=== PATIENT | male | born 1980 | race African-American/Black ===

== ENCOUNTER 2016-09-01 12:30 | Emergency (ER) | payer OTHER ==
[~2016-09-01] VITALS: Ht 175.3 cm; Wt 103.1 kg
[2016-09-01] MEDS ORDERED: NALOXONE HCL 0.4 MG/1 ML VIAL/CARP ONE ×2 (12:32→12:46)
[2016-09-01 12:39] VITALS: Ht 175.3 cm; Wt 103.1 kg
[2016-09-01 12:44] VITALS: O2SAT 99
[2016-09-01] MEDS ORDERED: SRQ200 PO (13:07)
[2016-09-01] MEDS ORDERED: QUET1TAB32 PO ×2 (13:07)
--- NOTE | 2016-09-01 13:07 | EMERGENCY ROOM VISIT NOTE ---
History Report prepared by Jared: Lisette Holt Under the Supervision of: Dr. Carlos England D.O. First contact with patient: 12:34 Stated Complaint: UNRESPONSIVE History of Present Illness The patient is a 35 year old male who presents to the Emergency Room with complaints of an episode of unresponsiveness occurring MANAGER CARE. The history is obtained from the corrections officers present at bedside. The patient is currently incarcerated at a [facility] facility. [facility] has been in [facility] for a week and a half. He is currently on suicide watch. The patient was found unresponsive in his cell today with pinpoint pupils. His BSG was 80. He was given 0.4mg of Narcan en route without any change in his mental status. He currently takes Seroquel. The history is limited secondary to the patient's unresponsiveness. 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 Past Medical & Surgical Medical Problems: (1) Depression (2) Suicidal ideations Family History No pertinent history stated. Social History Smoking Status: Unknown if Ever Smoked Housing Status: other (incarcerated) Occupation Status: other (incarcerated) Current/Historical Medications Scheduled Quetiapine Fumarate (Seroquel), 50 MG PO DAILY@0700 Quetiapine Fumarate (Seroquel), 200 MG PO HS Quetiapine Fumarate (Seroquel), 50 MG PO DAILY@1100 Allergies Coded Allergies: No Known Allergies (Unverified , 09/01/16) Physical Exam Vital Signs Date Time Temp Pulse Resp B/P Pulse Ox O2 Delivery O2 Flow Rate FiO2 09/01/16 16:48 108 20 174/116 100 09/01/16 16:11 37.0 108 20 174/116 100 09/01/16 15:56 145 30 205/192 09/01/16 14:11 87 18 147/108 98 Room Air 09/01/16 13:19 97 09/01/16 12:44 99 Nasal Cannula 2.0 09/01/16 12:39 37.2 95 20 152/107 99 Room Air Physical Exam GENERAL: Patient is unresponsive to deep, painful stimuli. HEENT: No acute trauma, normocephalic atraumatic, mucous membranes moist, no nasal congestion, no scleral icterus. NECK: No stridor, no adenopathy, no meningismus, trachea is midline. LUNGS: No dyspnea. Clear to auscultation and equal bilaterally. No wheeze, no rhonchi. HEART: Regular rate and rhythm. No murmurs, rubs, gallops appreciated. ABDOMEN: Soft, nontender, bowel sounds positive, no masses appreciated, no peritonitis. BACK: No midline tenderness, no CVA tenderness EXTREMITIES: Normal motion all extremities, no cyanosis, no edema. NEUROLOGIC: Unresponsive initially, now alert and oriented after 1.2mg of Narcan. No acute motor or sensory deficits, no focal weakness, cranial nerves grossly intact. SKIN: No rash, no jaundice, no diaphoresis. Medical Decision & Procedures ER Provider Diagnostic Interpretation: Radiology results as stated below per my review and radiologist interpretation: KUB CLINICAL HISTORY: alc pain COMPARISON STUDY: No previous studies for comparison. FINDINGS: Increased fecal load throughout the colon. Mild fecal impaction. No obstructive characteristics. No abnormal calcifications. IMPRESSION: 1. Mild fecal impaction. 2. Mild/moderate fecal load throughout the colon Electronically signed by: Jerrod Paredes M.D. 09/01/2016 1:21 PM Dictated Date/Time: 09/01/2016 1:20 PM CHEST ONE VIEW PORTABLE CLINICAL HISTORY: Unresponsive patient COMPARISON STUDY: No previous studies for comparison. FINDINGS: The heart is borderline enlarged. There is no failure. There is no focal pulmonary consolidation. There are no pleural effusions. There is no pneumothorax.[ IMPRESSION: No active disease in the chest. Electronically signed by: Jay Radford M.D. 09/01/2016 1:20 PM Dictated Date/Time: 09/01/2016 1:20 PM Laboratory Results 09/01/16 13:28 Red Blood Count 5.23, Mean Corpuscular Volume 85.3, Mean Corpuscular Hemoglobin 28.7, Mean Corpuscular Hemoglobin Concent 33.6, Mean Platelet Volume 10.5 09/01/16 13:28 Test 09/01/16 13:00 09/01/16 13:28 Urine Opiates Screen NEG (NEG) Urine Methadone, Qualitative NEG (NEG) Urine Barbiturates NEG (NEG) Urine Phencyclidine (PCP) Level NEG (NEG) Ur Amphetamine/Methamphetamine NEG (NEG) MDMA (Ecstasy) Screen NEG (NEG) Urine Benzodiazepines Screen POS (NEG) Urine Cocaine Metabolite NEG (NEG) Urine Marijuana (THC) POS (NEG) White Blood Count 4.52 K/uL (4.8-10.8) Red Blood Count 5.23 M/uL (4.7-6.1) Hemoglobin 15.0 g/dL (14.0-18.0) Hematocrit 44.6 % (42-52) Mean Corpuscular Volume 85.3 fL (80-100) Mean Corpuscular Hemoglobin 28.7 pg (25-34) Mean Corpuscular Hemoglobin Concent 33.6 g/dl (32-36) Platelet Count 258 K/uL (130-400) Mean Platelet Volume 10.5 fL (7.4-10.4) RDW Standard Deviation 48.6 fL (36.4-46.3) RDW Coefficient of Variation 15.4 % (11.5-14.5) Neutrophils % (Manual) 33.9 % Lymphocytes % (Manual) 41.1 % Variant Lymphocytes % (manual) 15.2 % Monocytes % (Manual) 8.0 % Eosinophils % (Manual) 1.8 % Neutrophils # (Manual) 1.53 K/uL (1.4-6.5) Total Absolute Neutrophils 1.53 K/uL (1.4-6.5) Lymphocytes # (Manual) 1.86 K/uL (1.2-3.4) Absolute Variant Lymphocytes 0.69 K/uL Total Absolute Lymphocytes 2.54 K/uL (1.2-3.4) Monocytes # (Manual) 0.36 K/uL (0.11-0.59) Eosinophils # (Manual) 0.08 K/uL (0-0.5) Toxic Vacuolation 1+ Venous Blood pH 7.33 (7.36-7.41) Venous Blood Partial Pressure CO2 59 mmHg (38.0-50.0) Venous Blood Partial Pressure O2 33 mmHg Venous Blood HCO3 31 mmol/L Venous Blood Oxygen Saturation < 60.0 % Venous Blood Base Excess 2.9 mmol/L Anion Gap 8.0 mmol/L (3-11) Est Creatinine Clear Calc Drug Dose 120.9 ml/min Estimated GFR () 111.7 Estimated GFR (Non- 96.4 BUN/Creatinine Ratio 11.6 (10-20) Osmolality 296 mOsm/kg (280-300) Calcium Level 9.3 mg/dl (8.5-10.1) Phosphorus Level 3.6 mg/dl (2.5-4.9) Magnesium Level 2.1 mg/dl (1.8-2.4) Total Bilirubin 0.6 mg/dl (0.2-1) Aspartate Amino Transf (AST/SGOT) 15 U/L (15-37) Alanine Aminotransferase (ALT/SGPT) 26 U/L (12-78) Alkaline Phosphatase 97 U/L (45-117) Total Protein 8.7 gm/dl (6.4-8.2) Albumin 4.4 gm/dl (3.4-5.0) Globulin 4.3 gm/dl (2.5-4.0) Albumin/Globulin Ratio 1.0 (0.9-2) Salicylates Level < 1.7 mg/dl (2.8-20) Acetaminophen Level < 2 ug/ml (10-30) Ethyl Alcohol mg/dL < 3.0 mg/dl (0-3) Laboratory results as reviewed by me. Medications Administered Medications (Trade) Dose Ordered Sig/Víctor Route Start Time Stop Time Status Last Admin Dose Admin Naloxone HCl (Narcan Inj) 1.2 mg STK-MED ONCE .ROUTE 09/01/16 12:32 09/01/16 12:36 DC 09/01/16 12:35 0.4 MG Haloperidol Lactate (Haldol Inj) 5 mg STK-MED ONCE .ROUTE 09/01/16 15:48 09/01/16 15:51 DC 09/01/16 15:56 5 MG Haloperidol Lactate (Haldol Inj) 5 mg STK-MED ONCE .ROUTE 09/01/16 15:57 09/01/16 16:00 DC 09/01/16 16:03 5 MG ECG Indication: altered mental status Rate (beats per minute): 90 Rhythm: normal sinus Findings: nonspecific-ST abn (consistent with early repolarization), other ( Normal axis, normal intervals) Comparison ECG Date: no prior available ED Course 1234: The patient was evaluated in room B1. A complete history and physical exam was performed. 1232: 1.2mg of Narcan 1259: I reassessed the patient at this time. His mental status is improving. 1306: I reassessed the patient. He is more awake and alert. He is sitting up in bed and talking. 1555: I reassessed the patient at this time. He was not verbally re-directable and screaming in the department. 1600: Haldol 10 mg IV 1630: I reevaluated the patient at this time. He is doing well. I discussed the results and treatment plan with the patient and the corrections officers. I answered all pertaining questions that they had. The patient will be discharged back to half-way in the custody of the corrections officers. Medical Decision Differential: Toxicological, Infectious, Stroke, SAH, Trauma, Electrolyte Abnormality, Hypoglycemia, Alcohol Intoxication, Drug Intoxication, Cardiac Abnormality, Sepsis, Meningitis/Encephalitis, Trauma, Excited Delirium, Serotonin Syndrome, Psychiatric, amongst other pathologies entertained. Patient is a 35-year-old male who is been on suicide watch in the half-way. He was found today unresponsive in the cell and brought to medical for further evaluation. He was given 0.4 mg Narcan prior to arrival by EMS. Initially the patient was unresponsive to deep painful stimuli however he was maintaining an airway and oxygenating well. Able to place a [place] and obtain a rectal temp with minimal response. He was given a total of 1.6 mg of Narcan and had an adequate response. Currently he is alert and oriented. In review of his labs initial VBG had an elevated PCO2 which be consistent with hypoventilation cyst syndrome, his ABG was mildly acidotic at 7.33, I think this is all respiratory in origin, there is no high gap metabolic acidosis at this time. His osmolality is within normal limits, his drug screen was positive for marijuana and benzos. I do suspect that this is a narcotic overdose as he responded to Narcan and synthetic narcotics will not be positive on our urine drug screen. At this point we will observe the patient for 4 hours in the emergency department to assess for re-sedation after the Narcan wears off if he remains stable he'll be discharged back to the care of the corrections officers. Impression Primary Impression: Opiate or related narcotic overdose Additional Impressions: Suicidal overdose Imprisonment and other incarceration Critical Care I have personally spent greater than 45 minutes of critical care time in the direct management of this patient. This includes bedside care, interpretation of diagnostic studies, and testing, discussion with consultants, patient, and family members, and other required patient management activities. This 45 minutes is in excess of all separately billable procedures. Scribe Attestation The scribe's documentation has been prepared under my direction and personally reviewed by me in its entirety. I confirm that the note above accurately reflects all work, treatment, procedures, and medical decision making performed by me. Departure Information Dispostion Home / Self-Care Referrals [facility], [facility] HOME CARE DOCUMENTATION FORM, IMPORTANT VISIT INFORMATION, WORK / SCHOOL INSTRUCTIONS Patient Instructions My [facility] Additional Instructions Continue current medical treatment. The patient had a clinical toxidrome consistent with opioid intoxication. The patient responded to 1.6 mg of Narcan and did not over re-sedate while in the emergency department for over 4 hours. Urine drug screen was positive for benzodiazepines and marijuana, opiates were negative; however, synthetic opiates will not test positive on the urine drug screen. Problem Qualifiers Primary Impression: Opiate or related narcotic overdose Encounter type: initial encounter Injury intent: undetermined intent Qualified Codes: T40.604A - Poisoning by unspecified narcotics, undetermined, initial encounter Additional Impressions: Suicidal overdose Encounter type: initial encounter Qualified Codes: T50.902A - Poisoning by unspecified drugs, medicaments and biological substances, intentional self-harm , initial encounter
--- NOTE | 2016-09-01 13:22 | DIAGNOSTIC IMAGING REPORT ---
CHEST ONE VIEW PORTABLE CLINICAL HISTORY: Unresponsive patient COMPARISON STUDY: No previous studies for comparison. FINDINGS: The heart is borderline enlarged. There is no failure. There is no focal pulmonary consolidation. There are no pleural effusions. There is no pneumothorax.[ IMPRESSION: No active disease in the chest. Electronically signed by: Jay Radford M.D. 09/01/2016 1:20 PM Dictated Date/Time: 09/01/2016 1:20 PM
--- NOTE | 2016-09-01 13:22 | DIAGNOSTIC IMAGING REPORT ---
KUB CLINICAL HISTORY: alc pain COMPARISON STUDY: No previous studies for comparison. FINDINGS: Increased fecal load throughout the colon. Mild fecal impaction. No obstructive characteristics. No abnormal calcifications. IMPRESSION: 1. Mild fecal impaction. 2. Mild/moderate fecal load throughout the colon Electronically signed by: Jerrod Paredes M.D. 09/01/2016 1:21 PM Dictated Date/Time: 09/01/2016 1:20 PM
[2016-09-01 13:39] LABS: BENZODIAZEPINE, URINE POS (NEG); COCAINE,URINE NEG (NEG); PHENCYCLIDINE, URINE NEG (NEG)
[2016-09-01 13:40] LABS: HEMATOCRIT 44.6 % (42-52); MEAN CELL VOLUME 85.3 fL (80-100); MEAN CORPUSCULAR HEMOGLOBIN 28.7 pg (25-34); MEAN CORPUSCULAR HGB CONC 33.6 g/dl (32-36); MEAN PLATELET VOLUME 10.5 fL (7.4-10.4); PLATELET COUNT 258 K/uL (130-400); RED BLOOD COUNT 5.23 M/uL (4.7-6.1); WHITE BLOOD COUNT 4.52 K/uL (4.8-10.8)
[2016-09-01 13:53] LABS: VEN BLOOD GAS BASE EXCESS 2.9 mmol/L; VENOUS BLOOD GAS PCO2 59 mmHg (38.0-50.0); VENOUS BLOOD GAS PO2 33 mmHg
[2016-09-01 13:57] LABS: BUN/CREATININE RATIO 11.6 (10-20); CALCIUM 9.3 mg/dl (8.5-10.1); MAGNESIUM 2.1 mg/dl (1.8-2.4); POTASSIUM 4.3 mmol/L (3.5-5.1)
[2016-09-01 14:00] LABS: PHOSPHORUS 3.6 mg/dl (2.5-4.9)
[2016-09-01 14:06] LABS: VEN BLD GAS O2 SATURATION < 60.0 %
[2016-09-01 14:08] LABS: COMPLETE YES; EOSINOPHIL % 1.8 %; LYMPH ABS # 1.86 K/uL (1.2-3.4); LYMPHOCYTE % 41.1 %; NEUTROPHILS % 33.9 %; VACUOLIZATION 1+; VARIANT LYM ABS # 0.69 K/uL; VARIANT LYMPHOCYTE % 15.2 %
[2016-09-01 14:12] LABS: ACETAMINOPHEN < 2 ug/ml (10-30)
[2016-09-01] MEDS ORDERED: HALOPERIDOL LACTATE 5 MG/ML 1 ML VIAL ONE ×2 (15:48→15:57)
[2016-09-01] MEDS ORDERED: HALOPERIDOL LACTATE 5 MG/ML 1 ML VIAL IV ONE (16:00)
[2016-09-01 16:11] VITALS: TEMP 37
[2016-09-01 16:48] VITALS: BP 174/116; PULSE 108; O2SAT 100
[2016-09-05 16:10] LABS: HYDROXYETHYLFLURAZEPAM CONF NEGATIVE NG/ML (CUTOFF=50); HYDROXYMIDAZOLAM NEGATIVE NG/ML (CUTOFF=50); HYDROXYTRIAZOLAM CONF NEGATIVE NG/ML (CUTOFF=50); TEMAZEPAM CONF NEGATIVE NG/ML (CUTOFF=50)
== END 2016-09-01 16:49 | disposition home or self-care (01) ==
LOC: EDBD 12:30 → C.EDB 12:36
DX: T40.602A Poisoning by unspecified narcotics, intentional self-harm, initial encounter (principal); Y92.143 Cell of prison as the place of occurrence of the external cause; Y99.8 Other external cause status; F32.9 Major depressive disorder, single episode, unspecified